=== PATIENT | female | born 1990 | race Caucasian/White ===

== ENCOUNTER → 2019-04-04 | Outpatient (REF) | payer OTHER, SELFPAY ==
[~2019-04-04] MED LIST: IBUP100S44 PO; MAPA500T17 PO
== END ==
LOC: M SFHCWAGY 14:23
PROVIDERS: ATTEND Nurse Practitioner Women's Health
DX: Z12.4 Encounter for screening for malignant neoplasm of cervix (principal); R87.610 Atypical squamous cells of undetermined significance on cytologic smear of cervix (ASC-US)
CPT/HCPCS: 87624; G0123

== ENCOUNTER → 2019-10-28 | Outpatient (CLI) | payer OTHER ==
--- NOTE | 2019-12-02 08:59 | REP ---
CHEST X-RAY: 2-VIEWS HISTORY: Sharp pain with inspiration. FINDINGS: The lungs are well-inflated and clear. The pleural angles are sharp. Heart size is normal. Mediastinal silhouette is unremarkable. Pulmonary vasculature is not increased. No bony abnormality is seen. IMPRESSION: Negative chest x-ray. MTDD
== END ==
LOC: M LRY 12:51
PROVIDERS: ATTEND Physician Assistant
DX: R07.1 Chest pain on breathing (principal)
CPT/HCPCS: 71046; 96372; G0463; J1885